=== PATIENT | female | born 1975 | race Caucasian/White ===

== ENCOUNTER 2016-06-12 08:20 | Day surgery (SDC) | payer BC ==
[~2016-06-12 08:20] MED LIST: RINGERS SOLUTION,LACTATED 1,000 ML IV PRN
[2016-06-12 08:46] LABS: Hematocrit 36.7 % (37.0-47.0); Hemoglobin 11.3 gm/dL (12.5-16.0); Mean Cell Volume 87.6 fl (78-100); Mean Corpuscular Hgb Conc 30.8 g/dl (32-36); Mean Platelet Volume 10.4 fl (6.0-9.5); Neutrophil # 6.9 K/mm3 (1.3-6.0); Neutrophil % 68.8 % (42-75.0); Platelet Count 312 K/mm3 (150-450); Red Blood Count 4.19 M/mm3 (4.2-5.4)
[2016-06-12] MEDS ORDERED: RINGERS SOLUTION,LACTATED 1,000 ML IV ONE (10:52)
[2016-06-12 12:03] VITALS: BP 125/63
--- NOTE | 2016-06-12 12:19 | PN ---
Subjective - Date and Time Seen Date: 06/12/16 Time: 12:14 Objective Objective Narrative: Patient presented to OR for hysteroscopy D&C. There was difficulty with her airway - see anesthesia note for further discussion. Procedure was not initiated as there was difficulty achieving adequate airway. This was discussed with the patient and her . She will be sent to [facility] for referral and further evaluation and treatment. The patient and her understand the plan set forth. - Vitals Vitals: Last Vital Signs Temp 36.9 C 06/12/16 12:07 Pulse 111 H 06/12/16 12:07 Resp 18 06/12/16 12:07 BP 125/63 06/12/16 12:07 Pulse Ox 93 06/12/16 12:07 - Abnormal Lab Findings Abnormal Lab Findings: Abnormal Lab Results 06/12/16 Range/Units 08:40 RBC 4.19 L (4.2-5.4) M/mm3 Hgb 11.3 L (12.5-16.0) gm/dL Hct 36.7 L (37.0-47.0) % MCHC 30.8 L (32-36) g/dl RDW 15.0 H (11.5-14.0) % MPV 10.4 H (6.0-9.5) fl Immature Gran % (Auto) 0.60 H (0.001-0.429) % Immature Gran # (Auto) 0.06 H (0.000-0.0310) K/mm3 Neutrophils # 6.9 H (1.3-6.0) K/mm3
== END 2016-06-12 08:21 | disposition home or self-care (01) ==
LOC: AMB 08:20
PROVIDERS: ATTEND Obstetrics & Gynecology
DX: N92.1 Excessive and frequent menstruation with irregular cycle (principal); R93.5 Abnormal findings on diagnostic imaging of other abdominal regions, including retroperitoneum; Z53.09 Procedure and treatment not carried out because of other contraindication; J98.8 Other specified respiratory disorders